=== PATIENT | female | born 1930 | race Caucasian/White ===

== ENCOUNTER 2016-12-23 10:14 | Emergency (ER) | payer MEDICARE, OTHER ==
[~2016-12-23] VITALS: Ht 152.4 cm; Wt 56.4 kg
[2016-12-23] VITALS (7 sets, daily range): BP systolic 167–227; BP diastolic 75–92; PULSE 68–78; RESP 16–22; TEMP 98.3; O2SAT 95–97
[~2016-12-23 10:14] MED LIST: ALEN70 PO; BAYE325T3 PO; HYDR-3533 PO; LOVA40TA PO; WALKER STANDARD
[2016-12-23] MEDS ORDERED: LIPI40TA PO (10:33)
[2016-12-23] MEDS ORDERED: MULT1TAB84 PO (10:33)
[2016-12-23] MEDS ORDERED: ASPI325T PO (10:33)
--- NOTE | 2016-12-23 10:47 | PD ---
HPI Chief Complaint: Fall Time Seen by Provider: 10:37 Travel History International Travel<30 days: No Contact w/Intl Traveler<30days: No Traveled to known affect area: No History of Present Illness HPI The patient was seen and examined in the presence of the nurse. This patient presents for evaluation of head injury. She tripped over a step and fell and struck her forehead on the ground. She did not lose consciousness. She has absolutely no head or neck pain. She feels fine but has a laceration. Paramedics were called to the [facility] where she fell. She has laceration. Symptoms severity is mild. Duration 1 hour. No alleviating factors. She takes a daily aspirin but no true blood thinners PFSH Past Medical History Hx Anticoagulant Therapy: Yes (ASA 325 MG) Arthritis: Yes Cancer: No Cardiovascular Problems: Yes (HIGH CHOLESTEROL) High Cholesterol: Yes Endocrine: No Genitourinary: No Immune Disorder: No Medical other: Yes (MACULAR DEGENERATION) Musculoskeletal: Yes Neurologic: No Psychiatric: No Reproductive: No Respiratory: No Tetanus Vaccination: < 5 Years Influenza Vaccination: Yes Past Surgical History Abdominal Surgery: Yes (CHOLECYSTECTOMY 12 YEARS AGO) Cardiac Surgery: No Cholecystectomy: Yes Ear Surgery: No Endocrine Surgery: No Eye Surgery: No Genitourinary Surgery: No Gynecologic Surgery: No Oral Surgery: No Thoracic Surgery: No Other Surgery: Yes Social History Alcohol Use: No Tobacco Use: No Substance Use: No Allergies-Medications (Allergen,Severity, Reaction): Coded Allergies: No Known Allergies (Verified , 12/23/16) Reported Meds & Prescriptions Reported Meds & Active Scripts Active Reported Multivitamin Adults (Multiple Vitamins W/ Minerals) 1 Tab 1 Tab PO DAILY Aspirin 325 Mg Tab 325 Mg PO DAILY Lipitor (Atorvastatin Calcium) 40 Mg Tab 40 Mg PO HS Review of Systems General / Constitutional: No: Fever Eyes: No: Visual changes HENT: No: Headaches Cardiovascular: No: Chest Pain or Discomfort Respiratory: No: Shortness of Breath Gastrointestinal: No: Abdominal Pain Genitourinary: No: Dysuria Musculoskeletal: No: Pain Skin: No Rash Neurologic: No: Weakness Psychiatric: No: Depression Endocrine: No: Polydipsia Hematologic/Lymphatic: No: Easy Bruising Physical Exam Narrative GENERAL: Well-nourished, well-developed patient in no apparent distress. SKIN: Focused skin assessment reveals no rash and nodules. Skin is Warm and dry. HEAD: 2.5 cm laceration in the center of the forehead. Normocephalic. EYES: Pupils equal and round. No scleral icterus. No injection or drainage. ENT: No nasal bleeding or discharge. Mucous membranes pink and moist. NECK: Trachea midline. No JVD. No midline tenderness CARDIOVASCULAR: Regular rate and rhythm. No murmur appreciated. RESPIRATORY: No accessory muscle use. Clear to auscultation. Breath sounds equal bilaterally. GASTROINTESTINAL: Abdomen soft, non-tender, nondistended. Hepatic and splenic margins not palpable. MUSCULOSKELETAL: No obvious deformities. No clubbing. No cyanosis. No edema. NEUROLOGICAL: Awake and alert. No obvious cranial nerve deficits. Motor grossly within normal limits. Normal speech. PSYCHIATRIC: Appropriate mood and affect; insight and judgment normal. Data Data Last Documented VS Vital Signs Date Time Temp Pulse Resp B/P Pulse Ox O2 Delivery O2 Flow Rate FiO2 12/23/16 10:35 77 18 177/79 95 Room Air 12/23/16 10:15 98.3 Orders Lidocai-Epi 1%-1:100,000 Inj (Xylocaine- (12/23/16 11:15) MDM Medical Decision Making Medical Screen Exam Complete: Yes Emergency Medical Condition: Yes Medical Record Reviewed: Yes Differential Diagnosis Concussion, laceration, contusion Narrative Course I have reviewed the patient's electronic medical record. Will have YARELY Hart repair laceration Patient is neurologically intact without symptoms. No indication for brain CT I am giving her head injury precautions and discussed them with her. She has completely normal mental status Has absolutely no headache Diagnosis Primary Impression: Head injury due to trauma Qualified Code: S09.90XA - Head injury due to trauma, initial encounter Additional Impression: Laceration of forehead without complication Qualified Code: S01.81XA - Laceration of forehead without complication, initial encounter Additional Instructions: The patient was advised to follow up with their physician and return if they worsen. Use head injury precautions Med/Other Pt SpecificInfo: Other Disposition: 01 DISCHARGE HOME Condition: Stable Osman Law MD December 23, 2016 10:47
[2016-12-23] MEDS ORDERED: LIDOCAINE 1%/EPINEPHrine 1:100,000 SOLN 20 ML VIAL INFIL ONE (11:15)
--- NOTE | 2016-12-23 11:44 | PD ---
Physical Exam Date Seen by Provider: December 23, 2016 Time Seen by Provider: 11:42 Narrative I was asked by Dr. Law to repair laceration to the patient's forehead. Please see his documentation for full history and physical. Data Data Last Documented VS Vital Signs Date Time Temp Pulse Resp B/P Pulse Ox O2 Delivery O2 Flow Rate FiO2 12/23/16 10:35 77 18 177/79 95 Room Air 12/23/16 10:15 98.3 Orders Lidocai-Epi 1%-1:100,000 Inj (Xylocaine- (12/23/16 11:15) [facility] Supervised Visit with ARON: No Procedures Procedure Narrative LACERATION LOCATION: Forehead LENGTH: 3 cm NUMBER OF STITCHES/YAN: 6 simple interrupted sutures REPAIR: The area of the laceration was prepped with Betadine and sterilely draped. The laceration was infiltrated with 1% lidocaine with epinephrine the wound was copiously irrigated and explored without evidence of foreign body, tendon injury or neurovascular injury. The wound was closed using 5-0 Prolene. This was a single layer repair. A sterile dressing was applied. The patient was advised to keep the dressing clean and dry. Patient tolerated the procedure well. Hailey Virgen December 23, 2016 11:44
[2016-12-23] MEDS ORDERED: cloNIDine HCL 0.2 MG TAB PO ONE (13:15)
[2016-12-23] MEDS ORDERED: FOSA70TA PO (17:06)
== END 2016-12-23 14:10 | disposition home or self-care (01) ==
LOC: NEPC 10:14
DX: S09.90XA Unspecified injury of head, initial encounter (principal); S01.81XA Laceration without foreign body of other part of head, initial encounter; R42 Dizziness and giddiness; E78.00 Pure hypercholesterolemia, unspecified; W01.198A Fall on same level from slipping, tripping and stumbling with subsequent striking against other object, initial encounter; Y93.01 Activity, walking, marching and hiking; Y92.511 Restaurant or cafe as the place of occurrence of the external cause; Z79.01 Long term (current) use of anticoagulants
CPT/HCPCS: 12013

== ENCOUNTER 2016-12-23 16:49 | Emergency (ER) | payer MEDICARE, OTHER ==
[~2016-12-23] VITALS: Ht 154.9 cm; Wt 50.0 kg
[~2016-12-23 16:49] MED LIST changes: +ASPI325T PO; +LIPI40TA PO; +MULT1TAB84 PO
[2016-12-23 17:00] VITALS: PULSE 82; RESP 20; TEMP 98.3; O2SAT 92
[2016-12-23] MEDS ORDERED: FOSA70TA PO (17:06)
--- NOTE | 2016-12-23 17:07 | PD ---
HPI Chief Complaint: Syncope/Near-Syncope Time Seen by Provider: 17:05 Travel History International Travel<30 days: No Contact w/Intl Traveler<30days: No Traveled to known affect area: No History of Present Illness HPI 86-year-old female presents to the emergency department for evaluation of dizziness. She states that she has been dizzy since shortly after she left the emergency department earlier. She was here after she fell after leaving the eye doctor and hitting her head. She had a laceration to forehead that was sutured at that time. She states that she fell due to blurry vision after having several eye drops placed in her eyes. She states that she sat up twice and felt dizzy and laid back down. She denies any syncope. She states the third time, she fell forward hitting her head again. The patient denies any neck pain or back pain. No chest pain or abdominal pain. No vomiting. She states the dizziness occurs with movement. She has no chest pain or shortness of breath. She denies any abdominal pain. No nausea, vomiting, diarrhea. She is not currently on any anticoagulants. PFSH Past Medical History Hx Anticoagulant Therapy: Yes (ASA 325 MG) Arthritis: Yes Cancer: No Cardiovascular Problems: Yes (HIGH CHOLESTEROL) High Cholesterol: Yes Diminished Hearing: No Endocrine: No Genitourinary: No Immune Disorder: No Musculoskeletal: Yes Neurologic: No Psychiatric: No Reproductive: No Respiratory: No Tetanus Vaccination: < 5 Years Influenza Vaccination: Yes Past Surgical History Abdominal Surgery: Yes (CHOLECYSTECTOMY 12 YEARS AGO) Cardiac Surgery: No Cholecystectomy: Yes Ear Surgery: No Endocrine Surgery: No Eye Surgery: No Genitourinary Surgery: No Gynecologic Surgery: No Oral Surgery: No Thoracic Surgery: No Other Surgery: Yes Social History Alcohol Use: No Tobacco Use: No Substance Use: No Allergies-Medications (Allergen,Severity, Reaction): Coded Allergies: No Known Allergies (Verified , 12/23/16) Reported Meds & Prescriptions Reported Meds & Active Scripts Active Reported Fosamax (Alendronate Sodium) 70 Mg Tab 70 Mg PO DAILY Multivitamin Adults (Multiple Vitamins W/ Minerals) 1 Tab 1 Tab PO DAILY Aspirin 325 Mg Tab 325 Mg PO DAILY Lipitor (Atorvastatin Calcium) 40 Mg Tab 40 Mg PO HS Review of Systems Except as stated in HPI: all other systems reviewed are Neg Physical Exam Narrative GENERAL: Well-nourished, well-developed elderly female patient, afebrile. SKIN: Focused skin assessment warm/dry. Patient has a 3 cm laceration to the forehead with sutures intact. HEAD: Normocephalic. EYES: No scleral icterus. No injection or drainage. NECK: Supple, trachea midline. No JVD or lymphadenopathy. CARDIOVASCULAR: Regular rate and rhythm without murmurs, gallops, or rubs. Bilateral radial and pedal pulses are 2+. RESPIRATORY: Breath sounds equal bilaterally. No accessory muscle use. Lungs sounds are clear to auscultation. GASTROINTESTINAL: Abdomen soft, non-tender, nondistended. MUSCULOSKELETAL: No cyanosis, or edema. BACK: Nontender without obvious deformity. No CVA tenderness. NEUROLOGICAL: Awake and alert. Cranial nerves II through XII intact. Motor and sensory grossly within normal limits. Five out of 5 muscle strength in all muscle groups. Normal speech. Finger to nose is normal bilaterally. Heel-to- jimenez is normal bilaterally. Data Data Last Documented VS Vital Signs Date Time Temp Pulse Resp B/P Pulse Ox O2 Delivery O2 Flow Rate FiO2 12/23/16 18:43 73 16 124/70 Room Air 12/23/16 17:00 98.3 92 Orders Electrocardiogram (12/23/16 17:03) Complete Blood Count With Diff (12/23/16 17:03) Comprehensive Metabolic Panel (12/23/16 17:03) Magnesium (Mg) (12/23/16 17:03) Ckmb (Isoenzyme) Profile (12/23/16 17:03) Troponin I (12/23/16 17:03) Act Partial Throm Time (Ptt) (12/23/16 17:03) Prothrombin Time / Inr (Pt) (12/23/16 17:03) Urinalysis - C+S If Indicated (12/23/16 17:03) Chest, Single Ap (12/23/16 17:03) Ct Brain W/O Iv Contrast(Rout) (12/23/16 17:03) Ct Cerv Spine W/O Contrast (12/23/16 17:03) Ecg Monitoring (12/23/16 17:03) Iv Access Insert/Monitor (12/23/16 17:03) Oximetry (12/23/16 17:03) Sodium Chloride 0.9% Flush (Ns Flush) (5/23/17 17:15) Sodium Chlorid 0.9% 500 Ml Inj (Ns 500 M (12/23/16 17:15) Orthostatic Vital Signs (12/23/16 17:03) Meclizine (Antivert) (12/23/16 18:00) Urine Culture (12/23/16 17:55) Labs Laboratory Tests Test 12/23/16 12/23/16 17:10 17:55 White Blood Count 8.4 TH/MM3 Red Blood Count 4.69 MIL/MM3 Hemoglobin 12.9 GM/DL Hematocrit 38.9 % Mean Corpuscular Volume 83.0 FL Mean Corpuscular Hemoglobin 27.6 PG Mean Corpuscular Hemoglobin 33.3 % Concent Red Cell Distribution Width 13.2 % Platelet Count 108 TH/MM3 Mean Platelet Volume 8.8 FL Neutrophils (%) (Auto) 70.8 % Lymphocytes (%) (Auto) 14.3 % Monocytes (%) (Auto) 14.0 % Eosinophils (%) (Auto) 0.4 % Basophils (%) (Auto) 0.5 % Neutrophils # (Auto) 5.9 TH/MM3 Lymphocytes # (Auto) 1.2 TH/MM3 Monocytes # (Auto) 1.2 TH/MM3 Eosinophils # (Auto) 0.0 TH/MM3 Basophils # (Auto) 0.0 TH/MM3 CBC Comment DIFF FINAL Differential Comment Prothrombin Time 11.9 SEC Prothromb Time International 1.1 RATIO Ratio Activated Partial 22.8 SEC Thromboplast Time Sodium Level 143 MEQ/L Potassium Level 3.8 MEQ/L Chloride Level 110 MEQ/L Carbon Dioxide Level 25.8 MEQ/L Anion Gap 7 MEQ/L Blood Urea Nitrogen 18 MG/DL Creatinine 0.88 MG/DL Estimat Glomerular Filtration 61 ML/MIN Rate Random Glucose 149 MG/DL Calcium Level 7.7 MG/DL Magnesium Level 2.0 MG/DL Total Bilirubin 1.2 MG/DL Aspartate Amino Transf 23 U/L (AST/SGOT) Alanine Aminotransferase 26 U/L (ALT/SGPT) Alkaline Phosphatase 46 U/L Total Creatine Kinase 66 U/L Troponin I LESS THAN 0.02 NG/ML Total Protein 5.6 GM/DL Albumin 3.0 GM/DL Urine Color YELLOW Urine Turbidity HAZY Urine pH 6.5 Urine Specific [place] 1.017 Urine Protein TRACE mg/dL Urine Glucose (UA) NEG mg/dL Urine Ketones NEG mg/dL Urine Occult Blood NEG Urine Nitrite NEG Urine Bilirubin NEG Urine Urobilinogen LESS THAN 2.0 MG/DL Urine Leukocyte Esterase MOD Urine RBC 2 /hpf Urine WBC 13 /hpf Urine Squamous Epithelial 8 /hpf Cells Urine Bacteria RARE /hpf Urine Hyaline Casts 13 /lpf Urine Mucus FEW /lpf Microscopic Urinalysis Comment CULTURE INDICATED MDM Medical Decision Making Medical Screen Exam Complete: Yes Emergency Medical Condition: Yes Medical Record Reviewed: Yes Interpretation(s) chest x-ray -CONCLUSION: No acute cardiopulmonary abnormality is identified. CT brain - CONCLUSION: There is a midline frontal scalp soft tissue swelling and mild soft tissue swelling along the right scalp. No fracture or acute intracranial abnormality is identified. CT cervical spine - CONCLUSION: Negative trauma CT. Differential Diagnosis Vertigo versus orthostatic hypotension versus intracranial hemorrhage versus electrolyte abnormality versus dehydration versus ACS Narrative Course 86-year-old female presents to the emergency department for evaluation after dizziness, fall. She denies any syncope. EKG, CBC, CMP, magnesium, CK, troponin, PTT, PTT/INR, UA are ordered and pending. Chest x-ray is ordered and pending. CT of the brain and CT of the cervical spine are ordered and pending. Orthostatic vital signs are ordered and pending. Patient is given normal saline 500 mL bolus. EKG shows sinus rhythm, heart rate 75, no acute ST changes. CBC shows platelets of 108, no acute abnormality. CMP shows no acute abnormality. CK is 66. Troponin is less than 0.02. PT is 11.9, PTT 22.8, INR 1.1. UA shows 13 WBC, but has 8 squamous epithelial cells, culture is indicated. Orthostatic VS are negative for orthostatic hypotension. Chest x-ray shows no acute cardiopulmonary abnormality. CT of the brain shows a midline frontal scalp soft tissue swelling and mild soft tissue swelling along the right scalp. No fracture or acute intracranial abnormality is identified. CT of the cervical spine is negative. Patient is walking around the emergency department without difficulty. She states she has no more dizziness and feels fine. She states she would like to go home. Patient is instructed to return immediately for any worsening symptoms. She verbalizes agreement and understanding. My attending physician, Dr. Law, is aware of plan, laboratory findings, imaging and agrees with plan and disposition. The patient was discharged in stable condition with instructions, including return instructions and follow up instructions. Diagnosis Primary Impression: Dizziness Referrals: Primary Care Physician call for appointment Patient Instructions: Dizziness (ED), General Instructions Additional Instructions: Follow-up with your primary care physician. Return to the emergency department for any acute worsening of symptoms. Med/Other Pt SpecificInfo: No Change to Meds Disposition: 01 DISCHARGE HOME Condition: Stable Hailey Virgen December 23, 2016 17:07
[2016-12-23] MEDS ORDERED: SODIUM CHLORIDE 0.9% FLUSH 10 ML FLUSH IVF PRN (17:15)
[2016-12-23] MEDS ORDERED: SODIUM CHLORID 0.9% 500 ML INJ 500 ML IV ONE (17:15)
[2016-12-23 17:31] LABS: AUTOMATED NEUTROPHIL # 5.9 TH/MM3 (1.8-7.7); BASOPHIL % 0.5 % (0.0-2.0); EOSINOPHIL % 0.4 % (0.0-4.0); HEMATOCRIT 38.9 % (35.0-46.0); HEMO FLAGS DIFF FINAL; LYMPH % 14.3 % (9.0-44.0); LYMPHOCYTE # 1.2 TH/MM3 (1.0-4.8); MEAN CORPUSCULAR HEMOGLOBIN 27.6 PG (27.0-34.0); MEAN CORPUSCULAR HGB CONC 33.3 % (32.0-36.0); NEUT % 70.8 % (16.0-70.0); PLATELET COUNT 108 TH/MM3 (150-450); RED BLOOD COUNT 4.69 MIL/MM3 (4.00-5.30); RED CELL DISTRIBUTION WIDTH 13.2 % (11.6-17.2); WHITE BLOOD COUNT 8.4 TH/MM3 (4.0-11.0)
--- NOTE | 2016-12-23 17:38 | RADRPT ---
EXAM DATE/TIME: 12/23/2016 17:11 [facility] COMPARISON: CHEST SINGLE AP, November 14, 2013, 11:53. INDICATIONS : Syncope. Fall today. MEDICAL HISTORY : None. SURGICAL HISTORY : None. ENCOUNTER: Initial ACUITY: 1 day PAIN SCORE: 0/10 LOCATION: Bilateral chest FINDINGS: Portable AP view of the chest demonstrates a normal-sized cardiac silhouette. No effusion, consolidat ion, or pneumothorax is visualized. The bones and soft tissues demonstrate no acute abnormality. CONCLUSION: No acute cardiopulmonary abnormality is identified. Avila Collins MD on December 23, 2016 at 17:36 Board Certified Radiologist. This report was verified electronically.
[2016-12-23 17:41] LABS: APTT (PATIENT) 22.8 SEC (24.3-30.1); INTERNATIONAL NORMALIZED RATIO 1.1 RATIO; PROTHROMBIN TIME - PATIENT 11.9 SEC (9.8-11.6)
[2016-12-23 17:47] LABS: ANION GAP 7 MEQ/L (5-15); AST (GOT) 23 U/L (15-37); BICARBONATE 25.8 MEQ/L (21.0-32.0); BLOOD UREA NITROGEN 18 MG/DL (7-18); CHLORIDE 110 MEQ/L (98-107); GLOMERULAR FILTRATION RATE 61 ML/MIN (>89); POTASSIUM 3.8 MEQ/L (3.5-5.1); SODIUM (NA) 143 MEQ/L (136-145)
[2016-12-23 17:49] VITALS: BP_SYST 125; BP_SYST 136; BP_SYST 141; BP_DIAS 60; BP_DIAS 62; BP_DIAS 63
--- NOTE | 2016-12-23 17:49 | RADRPT ---
EXAM DATE/TIME: 12/23/2016 17:28 [facility] COMPARISON: CT BRAIN W/O CONTRAST, November 14, 2013, 12:38. INDICATIONS : Syncope episode with laceration to forehead RADIATION DOSE: 52.23 CTDIvol (mGy) MEDICAL HISTORY : Carcinoma, thyroid. SURGICAL HISTORY : Cholecystectomy. ENCOUNTER: Initial ACUITY: 1 day PAIN SCALE: 3/10 LOCATION: cranial TECHNIQUE: Multiple contiguous axial images were obtained of the head. Using automated exposure control and adj ustment of the mA and/or kV according to patient size, radiation dose was kept as low as reasonably a chievable to obtain optimal diagnostic quality images. FINDINGS: CEREBRUM: The ventricles are normal. No midline shift, mass lesion, hemorrhage or acute infarction. No extra- axial fluid collections are seen. POSTERIOR FOSSA: The cerebellum and brainstem are intact. The 4th ventricle is midline. The cerebellopontine angle i s unremarkable. EXTRACRANIAL: There is scalp soft tissue swelling in the anterior midline frontal region and right frontal region. SKULL: The calvaria is intact. No evidence of skull fracture. CONCLUSION: There is a midline frontal scalp soft tissue swelling and mild soft tissue swelling along the right s calp. No fracture or acute intracranial abnormality is identified. Avila Collins MD on December 23, 2016 at 17:45 Board Certified Radiologist. This report was verified electronically.
[2016-12-23 17:51] LABS: ALKALINE PHOSPHATASE 46 U/L (45-117); ALT (GPT) 26 U/L (10-53); TOTAL BILIRUBIN ADULT 1.2 MG/DL (0.2-1.0)
[2016-12-23 17:52] LABS: CREATINE KINASE 66 U/L (26-192)
[2016-12-23] MEDS ORDERED: MECLIZINE HCL 25 MG TAB PO ONE (18:00)
[2016-12-23 18:08] LABS: BACTERIA, URINE RARE /hpf; BLOOD, URINE NEG (NEG); COMMENT (UR) CULTURE INDICATED; CULTURE IF INDICATED CULTURE INDICATED; GLUCOSE,URINE NEG (NEG); HYALINE CAST, URINE 13 /lpf (RARE); KETONE, URINE NEG (NEG); MUCUS URINE FEW /lpf (OCC); NITRITE,URINE NEG (NEG); PH, URINE 6.5 (5.0-8.5); SQUAMOUS EPITHELIAL CELL URINE 8 /hpf (0-5); URINE COLOR YELLOW (YELLW/STRAW)
--- NOTE | 2016-12-23 18:20 | RADRPT ---
EXAM DATE/TIME: 12/23/2016 17:31 [facility] COMPARISON: CT CERVICAL SPINE W/O CONTRAST, November 14, 2013, 12:38. INDICATIONS : Neck pain. Syncope episode with fall and laceration to the forehead . RADIATION DOSE: 20.32 CTDIvol (mGy) MEDICAL HISTORY : Cardiovascular disease. SURGICAL HISTORY : Cholecystectomy. ENCOUNTER: Initial ACUITY: 1 day PAIN SCALE: 3/10 LOCATION: cranial TECHNIQUE: Volumetric scanning of the cervical spine was performed. Multiplanar reconstructions i n the sagittal, coronal and oblique axial planes were performed. Using automated exposure control a nd adjustment of the mA and/or kV according to patient size, radiation dose was kept as low as reason ably achievable to obtain optimal diagnostic quality images. FINDINGS: The sagittal reconstructions demonstrate normal alignment and normal prevertebral soft tissues. The d ens is intact and there is a normal atlantoaxial relationship. Degenerative changes again noted at th e C4-5 through C6-7 levels with disc space narrowing and hypertrophic change. The axial images demonstrate that the vertebral bodies and posterior elements are intact. The soft ti ssues are within normal limits. There is no evidence of acute fracture or malalignment. Degenerative disc and degenerative joint changes are again noted. CONCLUSION: Negative trauma CT. Mack Gaspar MD on December 23, 2016 at 18:15 Board Certified Radiologist. This report was verified electronically.
[2016-12-23 18:43] VITALS: BP 124/70; PULSE 73; RESP 16
--- NOTE | 2016-12-23 19:45 | EKG ---
Date Performed: 12/23/2016 Time Performed: 17:21:37 PTAGE: 86 years EKG: Sinus rhythm NORMAL ECG NO PREVIOUS TRACING DOCTOR: Kerri Feldman Interpretating Date/Time 12/23/2016 19:44:24
[2016-12-23 19:49] VITALS: BP 148/86
== END 2016-12-23 20:15 | disposition home or self-care (01) ==
LOC: NEPC 16:49
DX: R42 Dizziness and giddiness (principal); E78.00 Pure hypercholesterolemia, unspecified
CPT/HCPCS: 70450; 71010; 72125; 80053; 81001; 82550; 83735; 84484; 85025; 85610; 85730; 87086; 93005; 99285; J7040; 12013

== ENCOUNTER 2016-12-30 10:25 | Emergency (ER) | payer MEDICARE, OTHER ==
[~2016-12-30] VITALS: Ht 152.4 cm; Wt 54.0 kg
[~2016-12-30 10:25] MED LIST changes: -ALEN70 PO; -BAYE325T3 PO; +FOSA70TA PO; -HYDR-3533 PO; -LOVA40TA PO; -WALKER STANDARD
[2016-12-30 10:26] VITALS: BP 130/88; PULSE 89; RESP 17; TEMP 98.1; O2SAT 97
--- NOTE | 2016-12-30 10:43 | PD ---
HPI Chief Complaint: Wound/Suture/Staple Re-Check Time Seen by Provider: 10:40 Travel History International Travel<30 days: No Contact w/Intl Traveler<30days: No Traveled to known affect area: No History of Present Illness HPI Patient is a 86 female presented to emergency room evaluation and removal of stitches to her forehead. Patient denies any complaints. She was seen by her primary doctor, Dr. Mendes this morning who did not feel comfortable taking him out as he did not know what type of stitches they were. PFSH Past Medical History Hx Anticoagulant Therapy: Yes (325 asa) Arthritis: Yes Cancer: No Cardiovascular Problems: Yes (HIGH CHOLESTEROL) High Cholesterol: Yes Diminished Hearing: No Endocrine: No Genitourinary: No Immune Disorder: No Musculoskeletal: Yes Neurologic: No Psychiatric: No Reproductive: No Respiratory: No Past Surgical History Abdominal Surgery: Yes (CHOLECYSTECTOMY 12 YEARS AGO) Cardiac Surgery: No Cholecystectomy: Yes Ear Surgery: No Endocrine Surgery: No Eye Surgery: No Genitourinary Surgery: No Gynecologic Surgery: No Oral Surgery: No Thoracic Surgery: No Other Surgery: Yes Social History Alcohol Use: No Tobacco Use: No Substance Use: No Allergies-Medications (Allergen,Severity, Reaction): Coded Allergies: No Known Allergies (Verified , 12/30/16) Reported Meds & Prescriptions Reported Meds & Active Scripts Active Reported Fosamax (Alendronate Sodium) 70 Mg Tab 70 Mg PO DAILY Multivitamin Adults (Multiple Vitamins W/ Minerals) 1 Tab 1 Tab PO DAILY Aspirin 325 Mg Tab 325 Mg PO DAILY Lipitor (Atorvastatin Calcium) 40 Mg Tab 40 Mg PO HS Review of Systems Except as stated in HPI: all other systems reviewed are Neg Skin: Positive Other (stitches to forehead) Physical Exam Narrative GENERAL: Well-nourished, well-developed patient. SKIN: Focused skin assessment warm/dry. Resolving ecchymosis to face, healed laceration to mid forehead with 6 intact sutures. Stitches are well approximated, with no sign or symptom of infection HEAD: Normocephalic. EYES: No scleral icterus. No injection or drainage. NECK: Supple, trachea midline. No JVD or lymphadenopathy. CARDIOVASCULAR: Regular rate and rhythm without murmurs, gallops, or rubs. RESPIRATORY: Breath sounds equal bilaterally. No accessory muscle use. GASTROINTESTINAL: Abdomen soft, non-tender, nondistended. MUSCULOSKELETAL: No cyanosis, or edema. BACK: Nontender without obvious deformity. No CVA tenderness. Data Data Last Documented VS Vital Signs Date Time Temp Pulse Resp B/P Pulse Ox O2 Delivery O2 Flow Rate FiO2 12/30/16 10:26 98.1 89 17 130/88 97 [facility] Medical Decision Making Medical Screen Exam Complete: Yes Emergency Medical Condition: Yes Medical Record Reviewed: Yes Interpretation(s) Vital Signs Date Time Temp Pulse Resp B/P Pulse Ox O2 Delivery O2 Flow Rate FiO2 12/30/16 10:26 98.1 89 17 130/88 97 Differential Diagnosis Cellulitis versus wound infection versus normal healing Narrative Course Patient is a 6-year-old female presenting for removal of stitches. Stitches were placed approximately one week ago. Patient has no new complaints. Stitches are well approximated with no sign or symptom of infection. 6 intact sutures removed from mid forehead. Patient was encouraged to apply sunscreen after scab sloughs off to avoid scarring. She was encouraged to follow-up with her primary doctor return to emergency department for any new or worsening symptoms. Patient verbalized understanding of instructions. Patient stable for discharge. Diagnosis Primary Impression: Encounter for removal of sutures Referrals: Primary Care Physician Patient Instructions: General Instructions Additional Instructions: You may wash her face with soap and water, after scab falls off use sunscreen to avoid scarring Follow-up with her primary doctor Return to emergency department for any new or worsening symptoms Med/Other Pt SpecificInfo: No Change to Meds Disposition: 01 DISCHARGE HOME Condition: Stable Zoey Connor December 30, 2016 10:43
== END 2016-12-30 10:55 | disposition home or self-care (01) ==
LOC: NEPK 10:25
DX: S01.81XD Laceration without foreign body of other part of head, subsequent encounter (principal); Z48.02 Encounter for removal of sutures; X58.XXXD Exposure to other specified factors, subsequent encounter
CPT/HCPCS: 99281

== ENCOUNTER 2017-09-25 11:06 | Inpatient (IN) | payer MEDICARE, OTHER ==
[~2017-09-25] VITALS: Ht 152.4 cm; Wt 52.0 kg
[~2017-09-25 11:06] MED LIST changes: +ASPI-183 PO; -ASPI325T PO
[2017-09-25 11:14] VITALS: BP 178/76; PULSE 76; RESP 19; TEMP 98.1; O2SAT 97
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
[2017-09-25 13:28] VITALS: BP 217/91; PULSE 79; RESP 15; O2SAT 96
[2017-09-25] MEDS ORDERED: MORPHINE SULFATE 4 MG/ML INJ IV PUSH ONE (13:45)
[2017-09-25] MEDS ORDERED: ONDANSETRON HCL 4 MG/2 ML VIAL IV PUSH ONE (13:45)
[2017-09-25 13:52] LABS: AUTOMATED NEUTROPHIL # 8.4 TH/MM3 (1.8-7.7); BASOPHIL # 0.1 TH/MM3 (0-0.2); BASOPHIL % 0.9 % (0.0-2.0); EOSINOPHIL # 0.1 TH/MM3 (0-0.4); EOSINOPHIL % 0.5 % (0.0-4.0); LYMPH % 12.1 % (9.0-44.0); LYMPHOCYTE # 1.3 TH/MM3 (1.0-4.8); MEAN CELL VOLUME 83.9 FL (80.0-100.0); MEAN CORPUSCULAR HEMOGLOBIN 28.6 PG (27.0-34.0); MEAN CORPUSCULAR HGB CONC 34.1 % (32.0-36.0); MEAN PLATELET VOLUME 8.4 FL (7.0-11.0); MONOCYTE # 1.1 TH/MM3 (0-0.9); NEUT % 76.5 % (16.0-70.0); PLATELET COUNT 139 TH/MM3 (150-450); RED BLOOD COUNT 5.25 MIL/MM3 (4.00-5.30); RED CELL DISTRIBUTION WIDTH 13.4 % (11.6-17.2)
--- NOTE | 2017-09-25 13:54 | PD ---
Physical Exam Narrative GENERAL: 87 y/o female who appears uncomfortable SKIN: Focused skin assessment warm/dry. HEAD: Atraumatic. Normocephalic. EYES: Pupils equal and round. No scleral icterus. No injection or drainage. ENT: No nasal bleeding or discharge. Mucous membranes pink and moist. NECK: Trachea midline. No JVD. no pain in midline with ROM CARDIOVASCULAR: Regular rate and rhythm. RESPIRATORY: No accessory muscle use. Clear to auscultation. Breath sounds equal bilaterally. MUSCULOSKELETAL: Pain with palpation of right knee, no pain with other joints , neurovascularly intact, compartment soft PSYCHIATRIC: Appropriate mood and affect; insight and judgment normal. Data Data Last Documented VS Vital Signs Date Time Temp Pulse Resp B/P (MAP) Pulse Ox O2 Delivery O2 Flow Rate FiO2 09/25/17 14:00 82 15 164/72 (102) 98 Room Air 09/25/17 11:14 98.1 Orders Orders Knee, Complete (4vws) (09/25/17 ) Splint Or Brace Apply/Monitor (09/25/17 12:49) Complete Blood Count With Diff (09/25/17 13:09) Comprehensive Metabolic Panel (09/25/17 13:09) Prothrombin Time / Inr (Pt) (09/25/17 13:09) Act Partial Throm Time (Ptt) (09/25/17 13:09) Magnesium (Mg) (09/25/17 13:09) Chest, Single Ap (09/25/17 13:09) Iv Access Insert/Monitor (09/25/17 13:09) Urinalysis - C+S If Indicated (09/25/17 13:09) Electrocardiogram (09/25/17 ) Morphine Inj (Morphine Inj) (09/25/17 13:45) Ondansetron Inj (Zofran Inj) (09/25/17 13:45) Admit Order (Ed Use Only) (09/25/17 14:32) Labs Laboratory Tests Test 09/25/17 13:35 White Blood Count 11.0 TH/MM3 Red Blood Count 5.25 MIL/MM3 Hemoglobin 15.0 GM/DL Hematocrit 44.0 % Mean Corpuscular Volume 83.9 FL Mean Corpuscular Hemoglobin 28.6 PG Mean Corpuscular Hemoglobin Concent 34.1 % Red Cell Distribution Width 13.4 % Platelet Count 139 TH/MM3 Mean Platelet Volume 8.4 FL Neutrophils (%) (Auto) 76.5 % Lymphocytes (%) (Auto) 12.1 % Monocytes (%) (Auto) 10.0 % Eosinophils (%) (Auto) 0.5 % Basophils (%) (Auto) 0.9 % Neutrophils # (Auto) 8.4 TH/MM3 Lymphocytes # (Auto) 1.3 TH/MM3 Monocytes # (Auto) 1.1 TH/MM3 Eosinophils # (Auto) 0.1 TH/MM3 Basophils # (Auto) 0.1 TH/MM3 CBC Comment DIFF FINAL Differential Comment Prothrombin Time 11.0 SEC Prothromb Time International Ratio 1.1 RATIO Activated Partial Thromboplast Time 25.2 SEC Blood Urea Nitrogen 26 MG/DL Creatinine 0.89 MG/DL Random Glucose 133 MG/DL Total Protein 7.2 GM/DL Albumin 3.7 GM/DL Calcium Level 8.7 MG/DL Magnesium Level 2.3 MG/DL Alkaline Phosphatase 68 U/L Aspartate Amino Transf (AST/SGOT) 26 U/L Alanine Aminotransferase (ALT/SGPT) 30 U/L Total Bilirubin 1.0 MG/DL Sodium Level 141 MEQ/L Potassium Level 4.2 MEQ/L Chloride Level 109 MEQ/L Carbon Dioxide Level 25.7 MEQ/L Anion Gap 6 MEQ/L Estimat Glomerular Filtration Rate 60 ML/MIN MDM Supervised Visit with ARON: No (Transferred from ambulance [facility] and resumed care on own) Interpretation(s) CBC & BMP Diagram 09/25/17 13:35 Last 24 hours Impressions Knee X-Ray 09/25/17 0000 Signed Impressions: Service Date/Time: Monday, September 25, 2017 12:35 - CONCLUSION: 1. Moderately distracted fracture of the patella. 2. Joint effusion. Andrzej Vasques MD Narrative Course Signed over to me that patient will be going to the OR today with ortho. Will follow workup for medical clearance. Provided with morphine for pain control and will admit to the hospital for further care. Physician Communication Physician Communication dr chaves agrees to admit Diagnosis Primary Impression: Patella fracture Qualified Codes: S82.001A - Unspecified fracture of right patella, initial encounter for closed fracture Additional Impression: Fall Qualified Codes: W19.XXXA - Unspecified fall, initial encounter Admitting Information Admitting Physician Requests: Admit Hanny Heller MD Sep 25, 2017 13:54
[2017-09-25 13:59] LABS: INTERNATIONAL NORMALIZED RATIO 1.1 RATIO
[2017-09-25 14:00] VITALS: BP 164/72; PULSE 82; RESP 15; O2SAT 98
[2017-09-25 14:05] LABS: ALBUMIN 3.7 GM/DL (3.4-5.0); ALT (GPT) 30 U/L (10-53); AST (GOT) 26 U/L (15-37); BICARBONATE 25.7 MEQ/L (21.0-32.0); BLOOD UREA NITROGEN 26 MG/DL (7-18); CALCIUM 8.7 MG/DL (8.5-10.1); CHLORIDE 109 MEQ/L (98-107); CREATININE 0.89 MG/DL (0.50-1.00); GLOMERULAR FILTRATION RATE 60 ML/MIN (>89); GLUCOSE,RANDOM 133 MG/DL (74-106); MAGNESIUM 2.3 MG/DL (1.5-2.5); SODIUM (NA) 141 MEQ/L (136-145)
[2017-09-25 14:07] LABS: ALKALINE PHOSPHATASE 68 U/L (45-117); TOTAL PROTEIN 7.2 GM/DL (6.4-8.2)
--- NOTE | 2017-09-25 14:49 | RADRPT ---
EXAM DATE/TIME: 09/25/2017 14:20 [facility] COMPARISON: CHEST SINGLE AP, December 23, 2016, 17:11. INDICATIONS : Evaluate for pneumonia, pneumothorax or communicable disease. Pre op for knee surgery MEDICAL HISTORY : None. SURGICAL HISTORY : None. ENCOUNTER: Initial ACUITY: 1 day PAIN SCORE: 0/10 LOCATION: Bilateral chest FINDINGS: A single view of the chest demonstrates the lungs to be symmetrically aerated without evidence of mas s, infiltrate or effusion. The cardiomediastinal contours are unremarkable. Osseous structures are intact. CONCLUSION: The lungs are clear. Vickey Yusuf MD on September 25, 2017 at 14:47 Board Certified Radiologist. This report was verified electronically.
[2017-09-25 16:00] VITALS: BP 135/76; PULSE 74; RESP 16; TEMP 97.8; O2SAT 97
[2017-09-25 16:19] VITALS: BP 135/76; PULSE 75; RESP 16; TEMP 97.8; O2SAT 97
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
[2017-09-25] MEDS ORDERED: ceFAZolin 2 GM PREMIX 50 ML IV SCH (17:30)
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
[2017-09-25] MEDS ORDERED: MORPHINE SULFATE 2 MG/ML INJ IV PUSH PRN (17:45)
[2017-09-25] MEDS ORDERED: ACETAMINOPHEN/HYDROcodone 325 MG/5 MG TAB PO PRN (17:45)
[2017-09-25 20:00] VITALS: BP 175/66; PULSE 79; RESP 15; TEMP 98.2; O2SAT 97
[2017-09-25] MEDS ORDERED: LACTATED RINGER'S 1000 ML IV PRN (22:45)
[2017-09-25] MEDS ORDERED: SODIUM CHLORID 0.9% 500 ML IV PRN (22:45)
[2017-09-25] MEDS ORDERED: INSULIN HUMAN REGULAR 1,000 UNITS/10 ML VIAL SQ PRN (22:45)
[2017-09-25] MEDS ORDERED: CHLORHEXIDINE GLUCONATE 2 % 1 PACK (2 CLOTHS) TOPICAL PRN (22:45)
[2017-09-25] MEDS ORDERED: POVIDONE IODINE 5% (ANTISEPSIS KIT) 4 APPLICATIONS EACH NARE PRN (22:45)
[2017-09-25] MEDS ORDERED: METOPROLOL TARTRATE 25 MG TAB PO PRN (22:45)
--- NOTE | 2017-09-25 23:21 | EKG ---
Date Performed: 09/25/2017 Time Performed: 13:51:32 PTAGE: 87 years EKG: Sinus rhythm NONSPECIFIC ST ABNORMALITIES ABNORMAL ECG PREVIOUS TRACING : 12/23/2016 17.21 No significant change from previous tracing noted. DOCTOR: Nino Lao Interpretating Date/Time 09/25/2017 23:20:48
[2017-09-26] VITALS (7 sets, daily range): BP systolic 127–166; BP diastolic 65–87; PULSE 68–87; RESP 16–18; TEMP 97.1–98.9; O2SAT 94–99
--- NOTE | 2017-09-26 07:23 | HHI.PR ---
Subjective Remarks looking forward to surgery slept well l=overnight, no significant pain complains Objective Vitals Vital Signs Date Time Temp Pulse Resp B/P (MAP) Pulse Ox O2 Delivery O2 Flow Rate FiO2 09/26/17 00:00 97.6 85 16 166/71 (102) 96 09/25/17 20:00 98.2 79 15 175/66 (102) 97 09/25/17 16:19 97.8 75 16 135/76 (95) 97 09/25/17 16:00 97.8 74 16 135/76 (95) 97 09/25/17 14:00 82 15 164/72 (102) 98 Room Air 09/25/17 14:00 15 09/25/17 13:28 79 15 217/91 (133) 96 Room Air 09/25/17 11:14 98.1 76 19 178/76 (110) 97 I/O 09/25/17 09/25/17 09/25/17 09/26/17 09/26/17 09/26/17 07:00 15:00 23:00 07:00 15:00 23:00 Intake Total 400 ml Balance 400 ml Intake Oral 400 ml # Voids 4 Result Diagram: 09/25/17 1335 09/25/17 1335 Imaging Last Impressions Chest X-Ray 09/25/17 1309 Signed Impressions: Service Date/Time: Monday, September 25, 2017 14:20 - CONCLUSION: The lungs are clear. Vickey Yusuf MD Knee X-Ray 09/25/17 0000 Signed Impressions: Service Date/Time: Monday, September 25, 2017 12:35 - CONCLUSION: 1. Moderately distracted fracture of the patella. 2. Joint effusion. Andrzej Vasques MD Objective Remarks awake and alert, oriented x 3, anicteric lungs clear regular rhythm abdomen soft, extremities- right leg brace in place A/P Problem List: (1) Patella fracture ICD Code: S82.009A - Unspecified fracture of unspecified patella, initial encounter for closed fracture Status: Acute (2) Hyperlipemia ICD Code: E78.5 - Hyperlipidemia, unspecified Assessment and Plan 87-year-old female very independent with ADLs admitted Right patella fracture status post fall Orthopedic surgery - surgery this am When necessary pain meds PT consult post op History of hyperlipidemia Continue on lovastatin some occasional elevated SBP- likely from pain no history of HTN. monitor DVT prophylaxis post op per orthopedic Case management consult for discharge planning Problem Qualifiers (1) Patella fracture: Qualified Codes: S82.001A - Unspecified fracture of right patella, initial encounter for closed fracture Nirmal Harrell MD Sep 26, 2017 07:23
[2017-09-26] MEDS ORDERED: GENTAMICIN SULFATE 80 MG/2 ML VIAL ONE (07:58)
[2017-09-26] MEDS ORDERED: DO NOT ADM ANY ANTICOAGULANT DRUGS PRN (09:15)
[2017-09-26] MEDS: LACTATED RINGER'S 1000 ML INJ 1,000 ML IV SCH ×2 (09:26→20:38)
--- NOTE | 2017-09-26 09:26 | PD.OP ---
cc: Chino Lobo MD Operative Report Date of Surgery: Sep 26, 2017 Preoperative Diagnosis: (1) Patella fracture Postoperative Diagnosis: (1) Patella fracture Procedure: Open reduction internal fixation right patella fracture Implants used: Synthes cannulated screws and tension band wire Anesthesia: Gen. Surgeon: Chino Lobo Crop Setting Out Machine Operator(s): Leah Ac PA-C (Ashley) The surgical procedure was assisted by my physician's assistant superintendent. Her presence was necessary throughout the case for manipulation and positioning of the surgical extremity. My PA was assisting me throughout the duration of this procedure. The skill set of the physician assistant superintendent was medically necessary to complete this procedure. During the surgical case the surgical resident was working at the back table and the physician assistant superintendent was directly assisting me. Operation and Findings: Indications: This 87-year-old female fell at a bus transfer station. She had immediate pain in the right knee and inability ambulate. X-rays revealed a displaced transverse patella fracture. Given the alternatives to treatment she presents for ORIF. Procedure and findings: The patient was taken to the operative suite and after undergoing an adequate level of general anesthesia was kept supine on the operating table. Preoperative antibiotics consisted of Ancef 2 g IV. The right lower extremity was then prepped and draped in usual sterile fashion with alcohol and Hibiclens. A standard anterior approach the knee was made. This was carried down through skin and subcutaneous tense tissue with a knife. There was soft tissue hematoma. The quadricep tendon was identified proximally and the patellar tendon distally. Fracture site was identified and curetted and irrigated of all fracture hematoma. Reduction clamp was then applied and the position checked in both the AP and lateral planes with the C-arm. 2 parallel K wires were placed from proximal to distal. Measurements were made and the appropriate length cannulated screws seated. An 18-gauge wire was then placed through the cannulated screws in a [id number] fashion and tightened. Excess wire was then removed. The position of the fracture reduction and placement of the internal fixation were checked in both the AP and lateral planes with the C-arm. The wound was thoroughly irrigated. It was closed in layers utilizing 0 Vicryl suture on the deep tissue, 2-0 Vicryl suture and the subcutaneous tense tissue and margot on the skin. Sterile dressings were applied, the patient was placed into a knee immobilizer, transferred to the hospital bed and taken to the recovery room in stable condition. Estimated blood loss: 20 cc Complications: None Chino Lobo MD Sep 26, 2017 09:26
[2017-09-26] MEDS ORDERED: TEMAZEPAM 15 MG CAP PO PRN (09:30)
[2017-09-26] MEDS ORDERED: ACETAMINOPHEN 325 MG TAB PO PRN (09:30)
[2017-09-26] MEDS ORDERED: MAGNESIUM HYDROXIDE SUSP 30 ML CUP PO PRN (09:30)
[2017-09-26] MEDS ORDERED: ACETAMINOPHEN/HYDROcodone 325 MG/5 MG TAB PO PRN (09:30)
[2017-09-26] MEDS ORDERED: MORPHINE SULFATE 8 MG/ML INJ IV PUSH PRN (09:30)
[2017-09-26] MEDS ORDERED: POVIDONE IODINE 10% SOLN 118 ML BOTTLE TOPICAL PRN (09:30)
[2017-09-26] MEDS ORDERED: ONDANSETRON HCL 4 MG/2 ML VIAL IVP PRN (09:30)
[2017-09-26] MEDS ORDERED: SODIUM CHLORIDE 0.9% FLUSH 10 ML FLUSH IV FLUSH PRN (09:30)
[2017-09-26] MEDS ORDERED: SENNOSIDES 8.6 MG TAB PO PRN (09:30)
[2017-09-26] MEDS ORDERED: LACTULOSE SYRUP 20 GM/30 ML CUP PO PRN (09:30)
[2017-09-26] MEDS ORDERED: BISACODYL 10 MG SUPP RECTAL PRN (09:30)
[2017-09-26] MEDS ORDERED: Post-op Orders (for Pharmacy) XX ONE (09:30)
--- NOTE | 2017-09-26 09:30 | RADRPT ---
EXAM DATE/TIME: 09/26/2017 08:24 [facility] COMPARISON: No previous studies available for comparison. INDICATIONS : Open reduction internal fixation right patella fracture MEDICAL HISTORY : None. SURGICAL HISTORY : None. ENCOUNTER: Initial ACUITY: 1 day PAIN SCORE: Non-responsive. LOCATION: Right patella FINDINGS: Two view examination of the right knee from the OR have been submitted. 2 screws with cerclage wires are seen traversing the mid patellar fracture successfully reducing it. CONCLUSION: Successful ORIF. Avila Sotomayor MD on September 26, 2017 at 9:28 Board Certified Radiologist. This report was verified electronically.
[2017-09-26] MEDS ORDERED: *LABETALOL HCL 100 MG/20 ML VIAL PERIprocedural Use ONLY ONE (09:33)
[2017-09-26] MEDS ORDERED: *MEPERIDINE 25 MG INJ VIAL PERIprocedural Use ONLY ONE (09:46)
[2017-09-26] MEDS: ACETAMINOPHEN/HYDROcodone 325 MG/5 MG TAB PO PRN ×3 (10:40→20:38)
[2017-09-26] MEDS ORDERED: LIDOCAINE HCL 1% PF 5 ML SYRINGE OTHER ONE (12:00)
[2017-09-26] MEDS ORDERED: PHENYLEPH/NS 1000 MCG/10 ML SYR IV ONE (12:00)
[2017-09-26] MEDS ORDERED: PHENYLEPHRINE HCL 10 MG/ML VIAL IV ONE (12:00)
[2017-09-26] MEDS ORDERED: PROPOFOL 200 MG/20 ML AMP IV ONE (12:00)
[2017-09-26] MEDS ORDERED: DEXAMETHASONE SOD PHOS 4 MG/ML VIAL IV ONE (12:00)
[2017-09-26] MEDS ORDERED: ONDANSETRON HCL 4 MG/2 ML VIAL IV ONE (12:00)
[2017-09-26] MEDS: SODIUM CHLORIDE 0.9% FLUSH 10 ML FLUSH IV FLUSH SCH (20:35)
[2017-09-26] MEDS: DOCUSATE SODIUM 50 MG/SENNA 8.6 MG TAB PO SCH (20:36)
[2017-09-27 03:25] VITALS: BP 152/75; PULSE 88; RESP 16; TEMP 98.1; O2SAT 94
[2017-09-27] MEDS: ACETAMINOPHEN/HYDROcodone 325 MG/5 MG TAB PO PRN ×2 (06:27→13:36)
--- NOTE | 2017-09-27 06:27 | PD.ORT.PN ---
Subjective Post Op Day #: 1 Pain Scale: 3 Subjective Remarks The patient is awake and alert and answers questions appropriately. She is having mild discomfort in the knee. She has no other specific complaint. Objective Vitals Vital Signs Date Time Temp Pulse Resp B/P (MAP) Pulse Ox O2 Delivery O2 Flow Rate FiO2 09/27/17 03:25 98.1 88 16 152/75 (100) 94 09/26/17 23:32 98.9 86 16 142/65 (90) 95 09/26/17 21:57 Room Air 09/26/17 21:08 18 09/26/17 19:13 98.9 84 16 140/66 (90) 94 09/26/17 16:31 98.4 74 17 165/74 (104) 99 09/26/17 11:47 97.3 78 18 142/78 (99) 95 09/26/17 10:00 72 14 164/78 (106) 99 Nasal Cannula 2 09/26/17 09:45 77 19 175/77 (109) 98 Nasal Cannula 2 09/26/17 09:30 86 21 177/77 (110) 99 Nasal Cannula 2 09/26/17 09:13 98.2 80 24 162/70 (100) 99 Nasal Cannula 2 09/26/17 07:15 97.6 87 17 127/65 (85) 97 I/O 09/26/17 09/26/17 09/26/17 09/27/17 09/27/17 09/27/17 07:00 15:00 23:00 07:00 15:00 23:00 Intake Total 1695 ml 360 ml 580 ml Output Total 20 ml Balance 1675 ml 360 ml 580 ml Intake Oral 720 ml 360 ml 480 ml IV Total 975 ml 100 ml Output Estimated Blood Loss 20 ml # Voids 5 2 4 # Bowel Movements 0 0 0 Result Diagram: 09/25/17 1335 09/25/17 1335 Imaging Last 48 hours Impressions Knee X-Ray 09/26/17 0000 Signed Impressions: Service Date/Time: Tuesday, September 26, 2017 08:24 - CONCLUSION: Successful ORIF. Avila Sotomayor MD Chest X-Ray 09/25/17 1309 Signed Impressions: Service Date/Time: Monday, September 25, 2017 14:20 - CONCLUSION: The lungs are clear. Vickey Yusuf MD Procedures ORIF right patella to 09/26/17 Objective Remarks The right knee dressing is dry and intact. She is in a knee immobilizer. She moves her toes and ankle freely and has good capillary refill and sensation. She has a negative Homans sign. Assessment & Plan Problem List: (1) Patella fracture ICD Codes: S82.009A - Unspecified fracture of unspecified patella, initial encounter for closed fracture Status: Acute Qualifiers: Qualified Codes: S82.001A - Unspecified fracture of right patella, initial encounter for closed fracture Assessment and Plan Orthopedic status stable postoperative day #1 ORIF right patella. Progress rehabilitation. Discharge planning. The patient is stable for discharge from an orthopedic standpoint with follow-up in approximately 7-10 days. DVT prophylaxis-aspirin Chino Lobo MD Sep 27, 2017 06:27
[2017-09-27 08:00] VITALS: BP 134/68; PULSE 81; RESP 17; TEMP 98.1; O2SAT 94
--- NOTE | 2017-09-27 08:06 | HHI.PR ---
Subjective Remarks alert, minimal pain rright knee- 3 out of 10 voiding spontaneously Objective Vitals Vital Signs Date Time Temp Pulse Resp B/P (MAP) Pulse Ox O2 Delivery O2 Flow Rate FiO2 09/27/17 03:25 98.1 88 16 152/75 (100) 94 09/26/17 23:32 98.9 86 16 142/65 (90) 95 09/26/17 21:57 Room Air 09/26/17 21:08 18 09/26/17 19:13 98.9 84 16 140/66 (90) 94 09/26/17 16:31 98.4 74 17 165/74 (104) 99 09/26/17 11:47 97.3 78 18 142/78 (99) 95 09/26/17 10:00 72 14 164/78 (106) 99 Nasal Cannula 2 09/26/17 09:45 77 19 175/77 (109) 98 Nasal Cannula 2 09/26/17 09:30 86 21 177/77 (110) 99 Nasal Cannula 2 09/26/17 09:13 98.2 80 24 162/70 (100) 99 Nasal Cannula 2 I/O 09/26/17 09/26/17 09/26/17 09/27/17 09/27/17 09/27/17 07:00 15:00 23:00 07:00 15:00 23:00 Intake Total 1695 ml 360 ml 580 ml Output Total 20 ml Balance 1675 ml 360 ml 580 ml Intake Oral 720 ml 360 ml 480 ml IV Total 975 ml 100 ml Output Estimated Blood Loss 20 ml # Voids 5 2 4 # Bowel Movements 0 0 0 Result Diagram: 09/25/17 1335 09/25/17 1335 Imaging Last Impressions Knee X-Ray 09/26/17 0000 Signed Impressions: Service Date/Time: Tuesday, September 26, 2017 08:24 - CONCLUSION: Successful ORIF. Avila Sotomayor MD Chest X-Ray 09/25/17 1309 Signed Impressions: Service Date/Time: Monday, September 25, 2017 14:20 - CONCLUSION: The lungs are clear. Vickey Yusuf MD Objective Remarks awake and alert, oriented x 3, anicteric lungs clear regular rhythm abdomen soft, extremities-right LE- immobilizer in place, moves toes freely, good peripheral pulses Procedures 09/26- Open reduction internal fixation right patella fracture Implants used: Synthes cannulated screws and tension band wire A/P Problem List: (1) Patella fracture ICD Code: S82.009A - Unspecified fracture of unspecified patella, initial encounter for closed fracture Status: Acute (2) Hyperlipemia ICD Code: E78.5 - Hyperlipidemia, unspecified Assessment and Plan 87-year-old female very independent with ADLs admitted Right patella fracture status post fall S/P ORIF 09/26 PT daily Incetnive spirometry hourly- good efforts prn pain meds History of hyperlipidemia Continue on lovastatin Occasional elevated SBP- likely from pain no history of HTN. monitor- prn pain meds DVT prophylaxis - on Lovenox Case management - SNF tosay or in am if arranfged Problem Qualifiers (1) Patella fracture: Qualified Codes: S82.001A - Unspecified fracture of right patella, initial encounter for closed fracture Nirmal Harrell MD Sep 27, 2017 08:06
[2017-09-27 08:17] LABS: HEMATOCRIT 36.3 % (35.0-46.0); HEMOGLOBIN 12.5 GM/DL (11.6-15.3)
[2017-09-27] MEDS: SODIUM CHLORIDE 0.9% FLUSH 10 ML FLUSH IV FLUSH SCH ×2 (08:40→20:18)
[2017-09-27] MEDS: DOCUSATE SODIUM 50 MG/SENNA 8.6 MG TAB PO SCH ×2 (08:40→20:18)
[2017-09-27] MEDS: ENOXAPARIN SODIUM 30 MG/0.3 ML SYRINGE SQ SCH (08:40)
[2017-09-27 12:04] VITALS: BP 166/78; PULSE 77; RESP 18; TEMP 97.3; O2SAT 97
[2017-09-27 16:06] VITALS: BP 149/75; PULSE 82; RESP 17; TEMP 97.9; O2SAT 95
[2017-09-27 18:58] VITALS: BP 145/67; PULSE 74; RESP 16; TEMP 98.3; O2SAT 95
[2017-09-27] MEDS: MULTIVITAMINS/MINERALS THERAPEUTIC TAB PO SCH (20:18)
[2017-09-27 23:19] VITALS: BP 177/72; PULSE 89; RESP 16; TEMP 99.6; O2SAT 97
[2017-09-28] MEDS: ACETAMINOPHEN/HYDROcodone 325 MG/5 MG TAB PO PRN ×2 (00:08→12:25)
[2017-09-28 04:40] VITALS: BP 123/66; PULSE 86; RESP 16; TEMP 98.2; O2SAT 96
--- NOTE | 2017-09-28 07:30 | HHI.PR ---
Subjective Remarks minimal pain voiding spontaneously had a good BM last evening Objective Vitals Vital Signs Date Time Temp Pulse Resp B/P (MAP) Pulse Ox O2 Delivery O2 Flow Rate FiO2 09/28/17 04:40 98.2 86 16 123/66 (85) 96 09/27/17 23:19 99.6 89 16 177/72 (107) 97 09/27/17 20:15 Room Air 09/27/17 18:58 98.3 74 16 145/67 (93) 95 09/27/17 16:06 97.9 82 17 149/75 (99) 95 09/27/17 12:04 97.3 77 18 166/78 (107) 97 09/27/17 08:00 98.1 81 17 134/68 (90) 94 I/O 09/27/17 09/27/17 09/27/17 09/28/17 09/28/17 09/28/17 07:00 15:00 23:00 07:00 15:00 23:00 Intake Total 580 ml 800 ml 720 ml 360 ml Balance 580 ml 800 ml 720 ml 360 ml Intake Oral 480 ml 800 ml 720 ml 360 ml IV Total 100 ml # Voids 4 4 6 4 # Bowel Movements 0 0 1 Result Diagram: 09/27/17 0615 09/25/17 1335 Imaging Last Impressions Knee X-Ray 09/26/17 0000 Signed Impressions: Service Date/Time: Tuesday, September 26, 2017 08:24 - CONCLUSION: Successful ORIF. Avila Sotomayor MD Chest X-Ray 09/25/17 1309 Signed Impressions: Service Date/Time: Monday, September 25, 2017 14:20 - CONCLUSION: The lungs are clear. Vickey Yusuf MD Objective Remarks awake and alert, oriented x 3, anicteric lungs clear regular rhythm abdomen soft, extremities-right LE- CKS in place, good peripheral pulses, moves foot/toes freely Procedures 09/26- Open reduction internal fixation right patella fracture Implants used: Synthes cannulated screws and tension band wire A/P Problem List: (1) Patella fracture ICD Code: S82.009A - Unspecified fracture of unspecified patella, initial encounter for closed fracture Status: Acute (2) Hyperlipemia ICD Code: E78.5 - Hyperlipidemia, unspecified Assessment and Plan 87-year-old female very independent with ADLs admitted Right patella fracture status post fall S/P ORIF 09/26 PT daily Incetnive spirometry hourly- good efforts prn pain meds History of hyperlipidemia Continue on lovastatin Occasional elevated SBP- likely from pain- SBP 120 this am no history of HTN. monitor- prn pain meds DVT prophylaxis - per Ortho recommendation Case management - SNF today if cleared by Orthopedics Problem Qualifiers (1) Patella fracture: Qualified Codes: S82.001A - Unspecified fracture of right patella, initial encounter for closed fracture Nirmal Harrell MD Sep 28, 2017 07:30
--- NOTE | 2017-09-28 07:33 | HHI.DS ---
Discharge Summary Admission Date Sep 25, 2017 at 14:33 Discharge Date: Sep 28, 2017 Admitting Diagnosis patellar fracture (1) Patella fracture ICD Code: S82.009A - Unspecified fracture of unspecified patella, initial encounter for closed fracture Diagnosis: Principal Status: Acute (2) Hyperlipemia ICD Code: E78.5 - Hyperlipidemia, unspecified Diagnosis: Secondary Procedures 09/26- Open reduction internal fixation right patella fracture Implants used: Synthes cannulated screws and tension band wire Brief History - From Admission Patient is a very pleasant 87 year old female who is a very feisty lady 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 Denies any dizziness nausea vomiting syncope prior to or after the episode. EMS was called and was brought in here and on evaluation was noted to have a patellar fracture. She complains of pain but bearable. Patient baseline is very independent with ADLs with no assistive device. Review of systems is unremarkable. CBC/BMP: 09/27/17 0615 09/25/17 1335 Significant Findings Laboratory Tests Test 09/25/17 13:35 09/27/17 06:15 Platelet Count 139 TH/MM3 (150-450) Neutrophils (%) (Auto) 76.5 % (16.0-70.0) Monocytes (%) (Auto) 10.0 % (0.0-8.0) Neutrophils # (Auto) 8.4 TH/MM3 (1.8-7.7) Monocytes # (Auto) 1.1 TH/MM3 (0-0.9) Blood Urea Nitrogen 26 MG/DL (7-18) Random Glucose 133 MG/DL (74-106) Chloride Level 109 MEQ/L (98-107) Estimat Glomerular Filtration Rate 60 ML/MIN (>89) PE at Discharge awake and alert, oriented x 3, anicteric lungs clear regular rhythm abdomen soft, extremities-right LE- CKS in place, good peripheral pulses, moves foot/toes freely Pt update on day of discharge afebrile motivated with PT Hospital Course 87-year-old female very independent with ADLs admitted Right patella fracture status post fall S/P ORIF 09/26 PT daily, CKS to RLE at all times . weight bearing as tolerated Incentive spirometry hourly- good efforts prn pain meds History of hyperlipidemia Continue on lovastatin Occasional elevated SBP- likely from pain- SBP 120 this am no history of HTN. monitor- prn pain meds DVT prophylaxis - per Ortho recommendation Case management - SNF today if cleared by Orthopedics Problem Qualifiers Pt Condition on Discharge: Stable Discharge Disposition: Discharge to SNF Discharge Time: <= 30 minutes Discharge Instructions DIET: Follow Instructions for: As Tolerated, No Restrictions, Heart Healthy Diet Speech Therapy-Diet Recommends: Regular Additional Diet Instructions: 2 gm Na diet, low cholesterol diet Activities you can perform: Weight Bearing as Perla Activities to Avoid: Lifting/Bending Other Activity Instructions: CKS at all times WBAT shan MOORE with CKS Follow up Referrals: Orthopedics - [facility] with Chino Lobo MD PCP Follow-up - 2-[address] [facility] Alfea M. MD Sep 28, 2017 07:33
[2017-09-28] MEDS ORDERED: ASPI-516 CHEW (07:54)
--- NOTE | 2017-09-28 07:59 | PD.ORT.PN ---
Subjective Post Op Day #: 2 Subjective Remarks Postoperative 2 right ORIF patella Patient is awake alert with the brace on. She states her pain is well- controlled and she feels ready for discharge to rehabilitation today Objective Vitals Vital Signs Date Time Temp Pulse Resp B/P (MAP) Pulse Ox O2 Delivery O2 Flow Rate FiO2 09/28/17 04:40 98.2 86 16 123/66 (85) 96 09/27/17 23:19 99.6 89 16 177/72 (107) 97 09/27/17 20:15 Room Air 09/27/17 18:58 98.3 74 16 145/67 (93) 95 09/27/17 16:06 97.9 82 17 149/75 (99) 95 09/27/17 12:04 97.3 77 18 166/78 (107) 97 09/27/17 08:00 98.1 81 17 134/68 (90) 94 I/O 09/27/17 09/27/17 09/27/17 09/28/17 09/28/17 09/28/17 07:00 15:00 23:00 07:00 15:00 23:00 Intake Total 580 ml 800 ml 720 ml 360 ml Balance 580 ml 800 ml 720 ml 360 ml Intake Oral 480 ml 800 ml 720 ml 360 ml IV Total 100 ml # Voids 4 4 6 4 # Bowel Movements 0 0 1 Result Diagram: 09/27/17 0615 09/25/17 1335 Imaging Last 48 hours Impressions Knee X-Ray 09/26/17 0000 Signed Impressions: Service Date/Time: Tuesday, September 26, 2017 08:24 - CONCLUSION: Successful ORIF. Avila Sotomayor MD Chest X-Ray 09/25/17 1309 Signed Impressions: Service Date/Time: Monday, September 25, 2017 14:20 - CONCLUSION: The lungs are clear. Vickey Yusuf MD Procedures ORIF right patella to 09/26/17 Objective Remarks The right knee dressing is dry and intact. She is in a knee immobilizer. She moves her toes and ankle freely and has good capillary refill and sensation. She has a negative Homans sign. Assessment & Plan Ortho Post Op Day #: 2 Problem List: (1) Patella fracture ICD Codes: S82.009A - Unspecified fracture of unspecified patella, initial encounter for closed fracture Status: Acute Qualifiers: Qualified Codes: S82.001A - Unspecified fracture of right patella, initial encounter for closed fracture Assessment and Plan Orthopedic status stable postoperative day #2 ORIF right patella. Progress rehabilitation bearing as tolerated with knee immobilizer on. Dressing change before patient is discharged today, start daily dressing changes at that point DVT prophylaxis 81 mg aspirin twice a day Clear for discharge from an orthopedic standpoint follow-up in approximately 7-10 days. Leah Ac Sep 28, 2017 7:59 am
[2017-09-28 08:00] VITALS: BP 149/68; PULSE 86; RESP 16; TEMP 97.7; O2SAT 95
[2017-09-28] MEDS ORDERED: THERM PO (08:16)
[2017-09-28] MEDS ORDERED: HYDR-3516 PO ×2 (08:17→08:18)
[2017-09-28] MEDS: SODIUM CHLORIDE 0.9% FLUSH 10 ML FLUSH IV FLUSH SCH (09:00)
[2017-09-28] MEDS: ENOXAPARIN SODIUM 30 MG/0.3 ML SYRINGE SQ SCH (09:00)
[2017-09-28] MEDS: DOCUSATE SODIUM 50 MG/SENNA 8.6 MG TAB PO SCH (09:00)
[2017-09-28] MEDS: MULTIVITAMINS/MINERALS THERAPEUTIC TAB PO SCH (09:00)
[2017-09-28 12:00] VITALS: BP 142/72; PULSE 90; RESP 16; TEMP 98.7; O2SAT 94
== END 2017-09-28 13:31 | DRG 517 ==
LOC: NEPC 11:06 → NEDA 14:33 → N06B 15:57
PROVIDERS: ADMIT Internal Medicine; ATTEND Internal Medicine
PROC: 0QSD04Z Reposition Right Patella with Internal Fixation Device, Open Approach (ICD-10-PCS; principal; 2017-09-26 07:46)
DX: S82.031A Displaced transverse fracture of right patella, initial encounter for closed fracture (principal); E78.5 Hyperlipidemia, unspecified; M19.90 Unspecified osteoarthritis, unspecified site; S50.311A Abrasion of right elbow, initial encounter; W01.0XXA Fall on same level from slipping, tripping and stumbling without subsequent striking against object, initial encounter; M25.461 Effusion, right knee; M81.0 Age-related osteoporosis without current pathological fracture; Y92.521 Bus station as the place of occurrence of the external cause
CPT/HCPCS: 71045; 73560; 73564; 76000; 80053; 83735; 85014; 85018; 85025; 85610; 85730; 93005; 94150; 96374; 96375; C1713; J0690; J1100; J1580; J1650; J2175; J2270; J2370; J2405; J3010; J7120; L1830

== ENCOUNTER 2017-11-03 13:41 | Emergency (ER) | payer MEDICARE, MEDICAID ==
[~2017-11-03 13:41] MED LIST changes: -ASPI-183 PO; +ASPI-516 CHEW; +HYDR-3516 PO; -MULT1TAB84 PO; +THERM PO
[2017-11-03 13:51] VITALS: BP 167/68; PULSE 78; RESP 18; TEMP 98.1; O2SAT 95
[2017-11-03 13:56] VITALS: O2SAT 96
--- NOTE | 2017-11-03 13:59 | PD ---
HPI Chief Complaint: Dizziness Time Seen by Provider: 13:49 Travel History International Travel<30 days: No Contact w/Intl Traveler<30days: No Traveled to known affect area: No History of Present Illness HPI The patient was seen and examined in the presence of the nurse. This patient complains of dizziness. She has a room spinning dizziness that sounds a bit like vertigo. She has no headache or head injury or fever or vomiting. No hearing issues. No ear pain. She is not having chest pain or syncope. She was started on a blood pressure medication yesterday, lisinopril. She thinks the medicine is doing this. She woke up this morning feeling fine and took her medication. Couple hours later she became dizzy. At this point her dizziness has resolved. The duration was 2 hours. No obvious alleviating factors. She thinks the symptoms are caused by her medicine. PFSH Past Medical History Hx Anticoagulant Therapy: Yes (325 asa) Arthritis: Yes Anxiety: No Depression: No Heart Rhythm Problems: No Cancer: No Cardiovascular Problems: Yes (HIGH CHOLESTEROL) High Cholesterol: Yes Chest Pain: No Congestive Heart Failure: No Cerebrovascular Accident: No Diminished Hearing: No Endocrine: No GERD: No Genitourinary: No Hiatal Hernia: No Immune Disorder: No Musculoskeletal: Yes Neurologic: Yes Psychiatric: No Reproductive: No Respiratory: No Immunizations Current: Yes Migraines: No Seizures: No Ulcer: No Past Surgical History Abdominal Surgery: Yes (CHOLECYSTECTOMY 12 YEARS AGO) Cardiac Surgery: No Cholecystectomy: Yes Ear Surgery: No Endocrine Surgery: No Eye Surgery: No Genitourinary Surgery: No Gynecologic Surgery: No Oral Surgery: No Thoracic Surgery: No Other Surgery: Yes Social History Alcohol Use: No Tobacco Use: No Substance Use: No Allergies-Medications (Allergen,Severity, Reaction): Coded Allergies: No Known Allergies (Verified Allergy, Unknown, 11/03/17) Reported Meds & Prescriptions Reported Meds & Active Scripts Active Hydrocodone-Acetamin 5-325 mg (Hydrocodone/Acetaminophen) 5 Mg-325 Mg Tablet 1 Tab PO Q6HR PRN Thera M Plus (Multivitamins/Minerals Therapeutic) 1 Tab 1 Tab PO BID 30 Days Aspirin 81 Mg Chew 162 Mg CHEW DAILY 20 Days Reported Fosamax (Alendronate Sodium) 70 Mg Tab 70 Mg PO DAILY Lipitor (Atorvastatin Calcium) 40 Mg Tab 40 Mg PO HS Review of Systems General / Constitutional: No: Fever Eyes: No: Visual changes HENT: Positive: Vertigo, No: Headaches, Lightheadedness Cardiovascular: No: Chest Pain or Discomfort Respiratory: No: Shortness of Breath Gastrointestinal: No: Abdominal Pain Genitourinary: No: Dysuria Musculoskeletal: No: Pain Skin: No Rash Neurologic: Positive: Dizziness, No: Weakness Psychiatric: No: Depression Endocrine: No: Polydipsia Hematologic/Lymphatic: No: Easy Bruising Physical Exam Narrative GENERAL: Well-nourished, well-developed patient in no apparent distress. SKIN: Focused skin assessment reveals no rash and nodules. Skin is Warm and dry. HEAD: Atraumatic. Normocephalic. EYES: Pupils equal and round. No scleral icterus. No injection or drainage. ENT: No nasal bleeding or discharge. Mucous membranes pink and moist. NECK: Trachea midline. No JVD. CARDIOVASCULAR: Regular rate and rhythm. No murmur appreciated. RESPIRATORY: No accessory muscle use. Clear to auscultation. Breath sounds equal bilaterally. GASTROINTESTINAL: Abdomen soft, non-tender, nondistended. Hepatic and splenic margins not palpable. MUSCULOSKELETAL: No obvious deformities. No clubbing. No cyanosis. No edema. NEUROLOGICAL: Awake and alert. No obvious cranial nerve deficits. Motor grossly within normal limits. Normal speech. PSYCHIATRIC: Appropriate mood and affect; insight and judgment normal. Data Data Last Documented VS Vital Signs Date Time Temp Pulse Resp B/P (MAP) Pulse Ox O2 Delivery O2 Flow Rate FiO2 11/03/17 13:56 96 Room Air 11/03/17 13:51 98.1 78 18 167/68 (101) Orders Orders Electrocardiogram (11/03/17 13:53) Basic Metabolic Panel (Bmp) (11/03/17 13:53) Complete Blood Count With Diff (11/03/17 13:53) Ecg Monitoring (11/03/17 13:53) Iv Access Insert/Monitor (11/03/17 13:53) Oximetry (11/03/17 13:53) Sodium Chloride 0.9% Flush (Ns Flush) (11/03/17 14:00) Labs Laboratory Tests Test 11/03/17 13:50 White Blood Count 9.8 TH/MM3 Red Blood Count 5.09 MIL/MM3 Hemoglobin 14.9 GM/DL Hematocrit 42.4 % Mean Corpuscular Volume 83.3 FL Mean Corpuscular Hemoglobin 29.4 PG Mean Corpuscular Hemoglobin Concent 35.2 % Red Cell Distribution Width 13.0 % Platelet Count 169 TH/MM3 Mean Platelet Volume 9.4 FL Neutrophils (%) (Auto) 52.4 % Lymphocytes (%) (Auto) 23.9 % Monocytes (%) (Auto) 16.6 % Eosinophils (%) (Auto) 6.2 % Basophils (%) (Auto) 0.9 % Neutrophils # (Auto) 5.1 TH/MM3 Lymphocytes # (Auto) 2.3 TH/MM3 Monocytes # (Auto) 1.6 TH/MM3 Eosinophils # (Auto) 0.6 TH/MM3 Basophils # (Auto) 0.1 TH/MM3 CBC Comment DIFF FINAL Differential Comment Blood Urea Nitrogen 23 MG/DL Creatinine 1.10 MG/DL Random Glucose 109 MG/DL Calcium Level 8.5 MG/DL Sodium Level 139 MEQ/L Potassium Level 3.7 MEQ/L Chloride Level 105 MEQ/L Carbon Dioxide Level 24.2 MEQ/L Anion Gap 10 MEQ/L Estimat Glomerular Filtration Rate 47 ML/MIN MDM Medical Decision Making Medical Screen Exam Complete: Yes Emergency Medical Condition: Yes Medical Record Reviewed: Yes Differential Diagnosis Positional vertigo, labyrinthitis, medication side effect Narrative Course I have reviewed the patient's electronic medical record. Patient was seen here for vertigo a year ago Patient is neurologically intact. Exam is normal I have ordered monitoring and EKG and labs Initial vitals are normal I reviewed her labs. CBC normal. Metabolic profile reveals mild renal insufficiency On recheck the patient feels well. She is ambulatory in the department without dizziness or vertigo or lightheadedness Stable for outpatient follow-up. She should check and record her blood pressure daily. She is going to hold her lisinopril for now Diagnosis Primary Impression: Dizziness Additional Instructions: The patient was advised to follow up with their physician and return if they worsen. Check and record blood pressure daily Med/Other Pt SpecificInfo: Other Disposition: 01 DISCHARGE HOME Condition: Stable Osman Law MD Nov 03, 2017 13:59
[2017-11-03] MEDS ORDERED: SODIUM CHLORIDE 0.9% FLUSH 10 ML FLUSH IVF PRN (14:00)
[2017-11-03 14:30] LABS: AUTOMATED NEUTROPHIL # 5.1 TH/MM3 (1.8-7.7); BASOPHIL # 0.1 TH/MM3 (0-0.2); BASOPHIL % 0.9 % (0.0-2.0); EOSINOPHIL # 0.6 TH/MM3 (0-0.4); EOSINOPHIL % 6.2 % (0.0-4.0); HEMATOCRIT 42.4 % (35.0-46.0); HEMOGLOBIN 14.9 GM/DL (11.6-15.3); LYMPH % 23.9 % (9.0-44.0); LYMPHOCYTE # 2.3 TH/MM3 (1.0-4.8); MEAN CELL VOLUME 83.3 FL (80.0-100.0); MEAN CORPUSCULAR HEMOGLOBIN 29.4 PG (27.0-34.0); MEAN CORPUSCULAR HGB CONC 35.2 % (32.0-36.0); MEAN PLATELET VOLUME 9.4 FL (7.0-11.0); MONO % 16.6 % (0.0-8.0); MONOCYTE # 1.6 TH/MM3 (0-0.9); NEUT % 52.4 % (16.0-70.0); PLATELET COUNT 169 TH/MM3 (150-450); RED BLOOD COUNT 5.09 MIL/MM3 (4.00-5.30); WHITE BLOOD COUNT 9.8 TH/MM3 (4.0-11.0)
[2017-11-03 14:51] LABS: BICARBONATE 24.2 MEQ/L (21.0-32.0); CALCIUM 8.5 MG/DL (8.5-10.1); CREATININE 1.1 MG/DL (0.50-1.00)
--- NOTE | 2017-11-04 13:16 | EKG ---
Date Performed: 11/03/2017 Time Performed: 14:04:38 PTAGE: 87 years EKG: JUNCTIONAL RHYTHM WITH OCCASIONAL SUPRAVENTRICULAR PREMATURE COMPLEXES ABNORMAL RHYTHM ECG PREVIOUS TRACING : 09/25/2017 13.51 DOCTOR: Vitaliy Peace Interpretating Date/Time 11/04/2017 13:14:53
== END 2017-11-03 17:10 | disposition home or self-care (01) ==
LOC: NEPC 13:41
DX: R42 Dizziness and giddiness (principal); R94.31 Abnormal electrocardiogram [ECG] [EKG]; N28.9 Disorder of kidney and ureter, unspecified; E78.00 Pure hypercholesterolemia, unspecified; Z79.82 Long term (current) use of aspirin
CPT/HCPCS: 80048; 85025; 93005